=== PATIENT | female | born 2000 | race Caucasian/White ===

== ENCOUNTER → 2022-08-08 10:45 | Outpatient (BNV) | payer BC, SELFPAY | PROVIDERS: Visit Provider Psychiatry & Neurology Psychiatry | DX: F42.9 Obsessive-compulsive disorder, unspecified (principal) | CPT/HCPCS: 99203; 99213 ==

== ENCOUNTER 2022-08-15 08:07 | Outpatient (REF) | payer BC, SELFPAY ==
[2022-08-15 15:19] LABS: Alanine Aminotransferase 10 U/L (0-31); Albumin Level 4.4 g/dL (3.5-5.0); Alkaline Phosphatase 61 U/L (39-117); Anion Gap 11 (12-20); Aspartate Amino Transferase 15 U/L (5-31); Bilirubin Total 0.7 mg/dL (0.0-1.0); Blood Urea Nitrogen 21 mg/dL (9-16); Calcium 9.6 mg/dL (8.4-10.2); Carbon Dioxide 23 mmol/L (22-29); Chloride 108 mmol/L (96-108); Cholesterol 122 mg/dL; Estimated Glomerular Filt Rate > 60; Glucose Fasting 74 mg/dL (60-99); HDL Cholesterol 54 mg/dL; LDL Cholesterol Calculated 57 mg/dl; Potassium 4.2 mmol/L (3.3-5.1); Sodium 138 mmol/L (135-145); Total Protein 6.8 g/dL (6.5-8.0); Triglycerides 55 mg/dL
== END 2022-08-15 08:08 | disposition home or self-care (01) ==
LOC: HO.LAB 08:07
PROVIDERS: Visit Provider Clinical Nurse Specialist Psychiatric/Mental Health
DX: F33.2 Major depressive disorder, recurrent severe without psychotic features (principal); F42.9 Obsessive-compulsive disorder, unspecified
CPT/HCPCS: 36415; 80053; 80061

== ENCOUNTER 2022-09-01 13:59 | Outpatient (REF) | payer BC, SELFPAY ==
[2022-09-01 15:10] LABS: Appearance Urine Clear; Color Urine Yellow; Glucose Urine UA Negative (Negative); Leukocyte Esterase Urine Negative (Negative); Nitrite Urine Negative (Negative); PH 6.5 (5.0-9.0); Urine Blood Negative (Negative); Urine Ketones Negative (Negative); Urine Protein Negative (Neg-Trace)
[2022-09-01 16:07] LABS: Alanine Aminotransferase 12 U/L (0-31); Albumin Level 4.3 g/dL (3.5-5.0); Alkaline Phosphatase 69 U/L (39-117); Anion Gap 12 (12-20); Aspartate Amino Transferase 17 U/L (5-31); Bilirubin Total 0.5 mg/dL (0.0-1.0); Blood Urea Nitrogen 11 mg/dL (9-16); Calcium 10.1 mg/dL (8.4-10.2); Carbon Dioxide 27 mmol/L (22-29); Chloride 108 mmol/L (96-108); Estimated Glomerular Filt Rate > 60; Glucose Random 74 mg/dL (60-115); Potassium 4.1 mmol/L (3.3-5.1); Sodium 143 mmol/L (135-145); Total Protein 6.8 g/dL (6.5-8.0)
== END 2022-09-01 14:00 | disposition home or self-care (01) ==
LOC: HO.LAB 13:59
PROVIDERS: Visit Provider Clinical Nurse Specialist Psychiatric/Mental Health
DX: E86.0 Dehydration (principal)
CPT/HCPCS: 36415; 80053; 81003

== ENCOUNTER 2022-09-08 10:15 | Outpatient (RCR) | payer BC, SELFPAY ==
[2022-08-08 11:36] VITALS: BMI 18.6
[2022-08-08 11:41] VITALS: BP 90/60; PULSE 64; TEMP 36.9
--- NOTE | 2022-08-08 12:18 | PC.ADMIT ---
Patient is a 21 year old female who came to [facility] on the recommendation of her therapist d/t increased depression with passive SI and anxiety along with recent dx of OCD sxs which she stated she did not struggle with before. Regarding SI patient stated she has, Intrusive thoughts when I get really angry and worked up, thoughts that I would be better off , then I'll cry. I don't want to , I'm too scared to do anything and I think about my niece and nephew and would not do that to my father . Patient reports 13 lb weight loss d/t decreased appetite and has not been cooking at present d/t fears of food contamination. Reports decrease in weight since May 2022. Patient reports many losses which could be contributing to her symptoms. Patient is alert and oriented x4. Calm and cooperative. Presents with depressed mood and anxious affect. Patient given a copy of her safety plan if needed and I reviewed it with her. Medications reconciled with patient and patient's pharmacy. She reports taking medication as prescribed. She reports she is currently taking a leave of absence from work d/t her symptoms. She lives at home with her mother and step father.
--- NOTE | 2022-08-09 09:17 | P.HPPSP_ITS ---
[facility] Date of Service: 08/09/22 Chief Complaint: OCD,depression Sources of Information: patient interviewed, chart reviewed and crisis/core team assessment reviewed HPI Healthcare Proxy: No Guardianship: No Medical Problems Affecting Mental Status: No Narrative: Doris is a [age]-year-old white, single, employed (works as a counselor in a retirement), young woman who started the [facility] program yesterday. She states that she has struggled with intrusive thoughts for a couple of years. Six months ago her father from [place]'s disease and within a couple months she started to have excessive hand washing and preoccupations with germs and intrusive thoughts pertaining to these issues. Sleeping has been adequate. She had tried to gain weight but lost 13 lb after she started to have more symptoms. Her washing symptoms [place] then it became much worse in the spring to the point that she sought help. She sees a therapist and recently a prescriber and started Zoloft about 3 weeks ago at 12.5 mg and will be increasing it soon. She does have knowledge about medication and is aware that for OCD reasons she needs to be on higher doses. She denies any substance use or abuse. She has had suicidal ideations specially when angry but denies any attempts or plans or close to acting on the thoughts. No hospitalizations. Review of systems is negative by system Past Psychiatric History: None [facility] Medical History (Updated 08/09/22 @ 09:44 by Antonio Milian MD) No known health problems Right ACL tear Family History: Positive for depression and anxiety in the maternal grand father and her mother. One sister is starting to show signs of Sigrid's disease and also has substance abuse issues. Social History: Doris is youngest of 3 girls. She has an older sister who is and another was having the above-mentioned problems. She denies any history of abuse growing up. Her mother is in her 50s and works in [employer] in the same company that she works for. She describes herself as havi ng always been introverted. She does a lot of things on her own. She did have a boyfriend for 4 years which broke up but they are still very close friends. He has been very helpful and supportive. She did to a semester of college after high school. She lives with her mother and stepfather. Substance History: None Trauma History: None other than recent loss of her father Diagnostics Vital Signs (24Hr): Vital Signs - 24 hr 08/08/22 11:41 Temperature 98.5 F Pulse Rate 64 Blood Pressure 90/60 BMI result Body Mass Index 18.6 Meds/Allergies Meds Home Medications Medication Instructions Recorded Confirmed Type sertraline 25 mg tablet 12.5 mg PO DAILY 08/08/22 08/08/22 History Allergies Allergies Allergy/AdvReac Type Severity Reaction Status Date / Time No Known Allergies Allergy Verified 08/08/22 11:31 Mental Status Exam Mental Status Exam Narrative: Doris was seen for the evaluation today. She is alert, oriented and pleasant. Normal speech. Good eye contact. Affect is appropriate and constricted. No overt anxiety but she states that she struggles with did even though the medication has been of some help in this respect. No signs of psychosis. Cognitively she is intact. She has insight into her problems. Judgment is intact Assessment & Plan Assessment & Plan (1) Obsessive compulsive disorder: Status: Acute Code(s): F42.9 - Obsessive-compulsive disorder, unspecified Plan In conclusion Doris is appropriate for the partial hospital program. She will continue the Zoloft and is aware of needing to increase the dose with her provider. Certification I certify that partial hospital treatment is medically necessary due to the symptoms and problems resulting from the patient's mental illness and the failure to treat the patient at the partial hospital level of care would likely result in the patient requiring inpatient psychiatric care which could not be prevented at a less intensive level of care. Time Spent With Patient Time: Total time managing care of this patient today ____ minutes.
--- NOTE | 2022-08-12 08:52 | HO.PHP ---
The clients case was reviewed and opened in treatment team
--- NOTE | 2022-08-12 09:00 | HO.PHP ---
The clients case was reviewed and opened in treatment team
--- NOTE | 2022-08-17 14:25 | HO.PHP ---
I sat with Doris and we explored options for therapists who specialize in treating OCD. She states she will formulate questions to ask and will call her.
--- NOTE | 2022-08-24 13:47 | HO.PHP ---
I met with Doris to help her make appointments with an outpatient OCD specialist . We looked at [facility] and she e mailed both. She states that she is finding the groups helpful and we discussed a discharge date of September 01.
--- NOTE | 2022-08-25 09:53 | PC.NURSE ---
Lucita Drew APRN reviewed patient labs done on 08/15/22. Copy faxed to patient's PCP. Encouraged to increase fluid intake.
--- NOTE | 2022-09-01 09:32 | P.PNPSP_ITS ---
Subjective Subjective Date of Service: 09/01/22 Reason For Visit: OCD,depression Healthcare Proxy: No Guardianship: No Medical Problems Affecting Mental Status: No Interim History: 21 yo withdepression, OCD with intrusive thoughts about containation. struggles with eating and hydrating due to concerns that food contaminated; pt on zoloft 25 mg daily at bedtime prescribed by outpt Yessi Anne MD in [facility] via TELEHEALTH. Pt has therapist via telehealth Fifi Rodriguez. Medication Compliance: Yes Side effects from medications: No Attending Groups: Yes Review of Systems Acute medical concerns: No Medical Review of Systems: unchanged Review of Systems: bun 21 Review of Systems Constitutional: Reports poor appetite and Reports weight loss Mental Status Exam Mental Status Exam Narrative: Doris is alert, oriented and pleasant. Normal speech. Good eye contact. Affect is appropriate and constricted. She is very anxious and guarded. reports worries about contamination. No signs of psychosis. Cognitively she is intact. She has insight into her problems. Judgment is intact Diagnostics Vital Signs (24Hr): BMI result Body Mass Index 18.6 Labs Labs: bun 21 Assessment & Plan Assessment & Plan (1) Obsessive compulsive disorder: Status: Acute Code(s): F42.9 - Obsessive-compulsive disorder, unspecified Plan Continue partial hospital program treatent plan per protocol She will continue the Zoloft 25 mg daily and is aware of needing to increase the dose with her provider. she will see her outpatient provide next week Patient educated on: diagnosis, medication risk/benefits and therapeutic strategies Informed Consent: understands and further education needed Reason for contiued partial hosp. stay Substantial Risk for: harm to self, harm to others, inability to function and rapid decompensation Certification I certify that partial hospital treatment is medically necessary due to the symptoms and problems resulting from the patient's mental illness and the failure to treat the patient at the partial hospital level of care would likely result in the patient requiring inpatient psychiatric care which could not be prevented at a less intensive level of care. Total time managing care of this patient today _30___ minutes. Discharge Plan Discharge Attending provider: Jeff Chakraborty Additional Instructions: Yessi Anne CHILDCARE PROVIDER 09/17/22 11 am, Fifi Rodriguez [facility] , will call for an appointment Medications: New sertraline [Zoloft] 25 mg tablet 25 mg PO DAILY Qty: 1 0RF Discontinued sertraline 25 mg tablet 12.5 mg PO DAILY Stand Alone Forms: Patient Portal Discharge page Patient Education: Obsessive Compulsive Disorder (DC)
--- NOTE | 2022-09-06 11:52 | HO.PHPPROGNO ---
Subjective Subjective Date of Service: 09/06/22 Reason For Visit: OCD,depression Healthcare Proxy: No Guardianship: No Medical Problems Affecting Mental Status: No Interim History: This is a follow-up visit with Doris who is currently in the partial hospital program and will be discharging tomorrow. She has found the program quite helpful, having gained new coping mechanisms. The Zoloft will be increased to 50 mg and she has been tolerating it. It has helped her to be able to set limits on the OCD symptoms. She denies any side effects. She will be returning to work as of 09/11. Eating and sleeping adequately. A prescription for the Zoloft has already been sent for her and she does have outpatient providers through telehealth. Medication Compliance: Yes Side effects from medications: No Review of Systems Review of Systems Yes all other systems are reviewed and are negative Mental Status Exam Mental Status Exam Narrative: Doris is alert, oriented and pleasant. Normal speech. Good eye contact. Affect is appropriate and constricted. She is very anxious and guarded. reports worries about contamination. No signs of psychosis. Cognitively she is intact. She has insight into her problems. Judgment is intact Diagnostics Vital Signs (24Hr): BMI result Body Mass Index 18.6 Assessment & Plan Assessment & Plan (1) Obsessive compulsive disorder: Status: Acute Code(s): F42.9 - Obsessive-compulsive disorder, unspecified Assessment and Plan: Continue Zoloft 50 mg. She will follow-up with her outpatient providers. Patient is discharging 09/07/22 Patient educated on: diagnosis and medication risk/benefits Certification I certify that partial hospital treatment is medically necessary due to the symptoms and problems resulting from the patient's mental illness and the failure to treat the patient at the partial hospital level of care would likely result in the patient requiring inpatient psychiatric care which could not be prevented at a less intensive level of care. Total time managing care of this patient today ____ minutes. Discharge Plan Discharge Attending provider: Jeff Chakraborty Medications: New sertraline [Zoloft] 25 mg tablet 25 mg PO DAILY Qty: 1 0RF Discontinued sertraline 25 mg tablet 12.5 mg PO DAILY Stand Alone Forms: Patient Portal Discharge page
--- NOTE | 2022-09-09 17:13 | HO.PHP ---
I called and left a message for the clients therapist,dao Lamb clients discharge from the program
== END 2022-09-08 23:59 | disposition home or self-care (01) ==
LOC: HO.PHPA 10:15
PROVIDERS: Visit Provider Psychiatry & Neurology Psychiatry
DX: F42.9 Obsessive-compulsive disorder, unspecified (principal); Z79.899 Other long term (current) drug therapy
CPT/HCPCS: 90791; 90853